=== PATIENT | male | born 1995 | race Caucasian/White ===

== ENCOUNTER 2022-07-08 15:37 | Emergency (ER) | payer OTHER ==
[~2022-07-08] VITALS: Ht 180.3 cm; Wt 81.6 kg
[2022-07-08 15:40] VITALS: BP 155/65
--- NOTE | 2022-07-08 16:30 | NUR ---
26 Y/O MALE BIB SELF C/O CHEST PRESSURE, PALPITATIONS, PER PT HE WAS DRINKING HEAVILY X2 DAYS WITH HIS FRIENDS AND BELIEVES THAT HIS DRINK WAS LACED WITH KETAMINE OR COCAINE NKA PMH:DENIES
[2022-07-08] MEDS ORDERED: methocarbamoL 500 MG TAB PO STA (17:07)
[2022-07-08] MEDS ORDERED: KETOROLAC 15 MG/ML VIAL IM ONE (17:10)
[2022-07-08 17:54] LABS: BASOPHILS % (AUTO) 0.5 % (0.0-2.0); EOSINOPHILS # (AUTO) 0.1 K/uL (0-0.4); HEMATOCRIT 42.3 % (36-52); LYMPHOCYTES # (AUTO) 1.6 K/uL (2.0-11.5); LYMPHOCYTES % (AUTO) 27.7 % (20.5-51.1); MEAN CORPUSCULAR HEMOGLOBIN 31 pg (27-31); MEAN CORPUSCULAR HGB CONC 33 g/dL (33-37); MONOCYTES # (AUTO) 0.7 K/uL (0.8-1.0); MONOCYTES % (AUTO) 11.8 % (1.7-9.3); NEUTROPHILS # (AUTO) 3.5 K/uL (1.8-7.7); PLATELET COUNT (AUTO) 329 K/uL (140-450); RED CELL DISTRIBUTION WIDTH 14.2 % (11.6-13.7); WHITE BLOOD COUNT (AUTO) 5.9 K/uL (4.8-10.8)
[2022-07-08 18:03] LABS: ALBUMIN 4.4 g/dL (3.4-5.0); ANION GAP 11.6 (8-16); CARBON DIOXIDE 28.1 mmol/L (21-32); CREATININE 0.9 mg/dL (0.6-1.3); POTASSIUM 3.7 mmol/L (3.5-5.1); TOTAL BILIRUBIN 0.2 mg/dL (0.0-1.0)
[2022-07-08] MEDS ORDERED: ASPIRIN 325 MG TAB PO ONE (19:05)
[2022-07-08] MEDS ORDERED: NITROGLYCERIN 0.4 MG TAB SL ONE (19:05)
--- NOTE | 2022-07-08 19:42 | NUR ---
ENDORSED TO OPERATIONAL TEST MECHANIC NURSE FOR CONTINUITY OF CARE. PT IS STABLE.
--- NOTE | 2022-07-08 19:51 | NUR ---
Patient resting in bed, A/Ox4, chest rise and fall symmetrical, no s/s of distress.
--- NOTE | 2022-07-08 20:05 | NUR ---
Dr. Quiñones examining patient.
[2022-07-08] MEDS ORDERED: LID5T TP (20:10)
[2022-07-08] MEDS ORDERED: METH-1681 PO (20:10)
[2022-07-08] MEDS ORDERED: ASPI-1822 PO (20:10)
[2022-07-08 20:33] VITALS: BP 121/82
== END 2022-07-08 20:36 | disposition home or self-care (01) ==
LOC: MED 15:37
DX: R07.9 Chest pain, unspecified (principal); F14.90 Cocaine use, unspecified, uncomplicated
CPT/HCPCS: 36415; 71045; 80053; 83690; 83880; 84484; 85025; 93005; 96372; 99285; J1885; Q0092

== ENCOUNTER 2022-11-01 18:51 | Emergency (ER) | payer OTHER ==
[~2022-11-01] VITALS: Ht 177.8 cm; Wt 79.4 kg
[~2022-11-01 18:51] MED LIST: ASPI-1822 PO; LID5T TP; METH-1681 PO
[2022-11-01 19:04] VITALS: BP 153/94
[2022-11-01] MEDS ORDERED: HYDROcodone/APAP 5/325 MG 1 TAB TAB PO ONE ×2 (19:55→21:10)
--- NOTE | 2022-11-01 20:09 | NUR ---
PATIENT RESTING IN BED, A/OX4, CHEST RISE AND FALL SYMMETRICAL, NO S/S OF DISTRESS, ON MONITOR, BEDRAIL UP.
[2022-11-01] MEDS ORDERED: KETOROLAC 30 MG/ML VIAL IM ONE (21:10)
[2022-11-01] MEDS ORDERED: ACET-9535 PO (21:49)
[2022-11-01] MEDS ORDERED: IBUP-2218 PO (21:49)
--- NOTE | 2022-11-01 22:15 | NUR ---
Patient resting in bed, A/Ox4, chest rise and fall symmetrical, no s/s of distress, on monitor.
[2022-11-01 22:58] VITALS: BP 127/85
== END 2022-11-01 23:02 | disposition home or self-care (01) ==
LOC: MED 18:51
DX: S42.022A Displaced fracture of shaft of left clavicle, initial encounter for closed fracture (principal); S62.511A Displaced fracture of proximal phalanx of right thumb, initial encounter for closed fracture; S62.610A Displaced fracture of proximal phalanx of right index finger, initial encounter for closed fracture; S62.614A Displaced fracture of proximal phalanx of right ring finger, initial encounter for closed fracture; Z79.899 Other long term (current) drug therapy; W22.01XA Walked into wall, initial encounter; Y93.02 Activity, running; Y92.34 Swimming pool (public) as the place of occurrence of the external cause; Y99.8 Other external cause status
CPT/HCPCS: 29125; 71045; 73030; 73110; 73130; 96372; 99285; J1885